=== PATIENT | female | born 1950 | race American Indian/Alaskan Native ===

== ENCOUNTER 2016-09-09 08:02 | Outpatient (CLI) | payer BC ==
--- NOTE | 2016-09-09 10:06 | Mammography Report ---
RIGHT DIGITAL DIAGNOSTIC MAMMOGRAM with CAD and RIGHT BREAST ULTRASOUND: 09/09/16 08:02:00 CLINICAL: Follow-up asymmetry. COMPARISON:02/25/16 FINDINGS: Routine views plus spot magnification MLO and CC views were performed and demonstrate a 6-9 mm mass in the upper outer quadrant approximately 7 cm from the nipple on the CC view. No architectural distortion or suspicious calcifications. Ultrasound of the right breast (including all four quadrants and the retroareolar area) was performed. A solid irregular hypoechoic mass 10:30 o'clock 7 cm from the nipple measures 8 x 6 x 6 mm and correlates with the mammographic mass. Minimal shadowing. Ultrasound of the right axilla demonstrated a 3 cm lymph node with central fat and mild focal cortical thinning of 6 mm. No other suspicious lymph nodes. IMPRESSION: An 8mm suspicious mass at 10:30 o'clock right breast and one suspicious right axillary lymph node. BI-RADS CATEGORY: 4--Suspicious RECOMMENDATION: Ultrasound guided needle core biopsy of the right breast and ultrasound guided needle core biopsy of a right axillary lymph node. I discussed the findings and the recommendation for needle core biopsy with the patient at the time of the examination. ACR BI-RADS MAMMOGRAPHIC CODES: 0 = Needs additional imaging evaluation; 1 = Negative; 2 = Benign; 3 = Probably benign; 4 = Suspicious; 5 = Malignant; 6 = Known biopsy-proven malignancy COMMENT: 1. Dense breast tissue, i.e., adenosis, fibrocystic changes, etc., may obscure an underlying neoplasm. 2. Approximately 10% of cancers are not detected with mammography. 3. A negative mammography report should not delay biopsy if a clinically suspicious mass is present. COMMENT: Patient follow-up letters are generated by our [employer] application.
== END 2016-09-09 08:03 | disposition home or self-care (01) ==
LOC: SPVWC 08:02
PROVIDERS: ATTEND Obstetrics & Gynecology
DX: N63 Unspecified lump in breast (principal); R92.8 Other abnormal and inconclusive findings on diagnostic imaging of breast
CPT/HCPCS: 76641; G0206

== ENCOUNTER 2016-09-15 13:27 | Outpatient (CLI) | payer BC ==
--- NOTE | 2016-09-15 15:09 | Mammography Report ---
RIGHT DIGITAL DIAGNOSTIC MAMMOGRAM: 09/15/16 13:27:00 CLINICAL: For clip placement immediately status post ultrasound biopsy. COMPARISON:09/09/16 FINDINGS: A biopsy clip is now identified within the mass in the upper-outer quadrant. IMPRESSION: Concordant clip placement status post ultrasound biopsy. BI-RADS CATEGORY: 4--Suspicious Pathology pending.
--- NOTE | 2016-09-15 15:29 | Ultrasound Report ---
VACUUM ASSISTED ULTRASOUND GUIDED NEEDLE CORE BIOPSY WITH CLIP PLACEMENT and ULTRASOUND GUIDED NEEDLE CORE BIOPSY OF A RIGHT AXILLARY LYMPH NODE: 09/15/16 13:27:00 CLINICAL: 8mm mass at 10:30 o'clock 7 cm from the nipple. COMPARISON :09/09/16 FINDINGS: The procedure was explained to the patient and informed consent was obtained. Ultrasound demonstrated the previously described mass. The skin in the axilla was prepped with Betadine and anesthetized with 1% lidocaine. Ultrasound guided needle core biopsy of the the previously identified suspicious lymph node was performed through a small dermatotomy using 2% lidocaine with epinephrine for deep anesthesia and a 18 gauge Achieve biopsy device. 3 samples were obtained and placed in formalin. A localizer clip was placed within the lymph node. The skin of the upper outer quadrant of the breast was prepped with Betadine and anesthetized with 1% lidocaine. Vacuum-assisted needle core biopsy was performed through a small dermatotomy using ultrasound guidance, 2% lidocaine with epinephrine for deep anesthesia and a 13-gauge Elite biopsy probe. Imaging demonstrated satisfactory sampling. Multiple cores were obtained and placed in formalin. A hydro-salma clip was deployed within the mass. Hemostasis was achieved with mild pressure and a sterile dressing was applied. The patient tolerated the procedure well and there were no apparent complications. A two view mammogram demonstrated concordant clip placement at both sites. Minimal hematoma the biopsy site. The patient left the department in good condition and was given instructions for wound care and follow up. IMPRESSION: Uncomplicated vacuum-assisted ultrasound core biopsy and ultrasound guided needle core biopsy of a right axillary lymph node with clip placement at both sites.
== END 2016-09-15 13:28 | disposition home or self-care (01) ==
LOC: SPVWC 13:27
PROVIDERS: ATTEND Obstetrics & Gynecology
DX: N63 Unspecified lump in breast (principal); R59.9 Enlarged lymph nodes, unspecified
CPT/HCPCS: 19083; 38505; 76942; A4648; G0206; 88305